=== PATIENT | female | born 1970 | race Caucasian/White ===

== ENCOUNTER 2023-12-23 23:23 | Observation (INO) | payer OTHER ==
[2023-12-23 23:30] LABS: Glucose,Whole Blood 92 mg/dL (70-110)
[2023-12-23] MEDS: SODIUM CHLORIDE 0.9% 1,000 ML IV STA (23:36)
[2023-12-24 00:06] LABS: Basophils # (A) 0.1 k/uL (0-0.2); Basophils % (A) 1 %; Eosinophils # (A) 0.2 k/uL (0-0.7); Eosinophils % (A) 3 %; HCT 40.3 % (34.0-46.0); HGB 13.1 gm/dL (11.4-16.0); Lymphocytes # (A) 2.6 k/uL (1.0-4.8); Lymphocytes % (A) 42 %; MCHC 32.7 g/dL (31.0-37.0); MCV 91.8 fL (80.0-100.0); Mean Platelet Volume 7.9; Monocytes # (A) 0.3 k/uL (0-1.0); Monocytes % (A) 5 %; Neutrophils % (A) 47 %; Platelet Count 339 k/uL (150-450); RBC 4.39 m/uL (3.80-5.40); RDW 12.1 % (11.5-15.5); WBC 6.3 k/uL (3.8-10.6)
[2023-12-24 00:21] LABS: ALT 22 U/L (4-34); AST 33 U/L (14-36); Acetaminophen <10.0 ug/mL; African American GFR (CKD) >90 (>60 ml/min/1.73 sqM); Albumin 4.4 g/dL (3.5-5.0); Alkaline Phosphatase 51 U/L (38-126); Anion Gap 12 mmol/L; Blood Urea Nitrogen 13 mg/dL (7-17); Calcium 8.9 mg/dL (8.4-10.2); Carbon Dioxide 20 mmol/L (22-30); Chloride 108 mmol/L (98-107); Glucose 88 mg/dL (74-99); Non-African American GFR(CKD) >90 (>60 ml/min/1.73 sqM); Potassium 4.2 mmol/L (3.5-5.1); Salicylate <1.0 mg/dL; Sodium 140 mmol/L (137-145); Total Bilirubin 0.5 mg/dL (0.2-1.3); Total Protein 7.5 g/dL (6.3-8.2)
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
[2023-12-24 00:35] LABS: Alcohol 252 mg/dL
[2023-12-24 01:49] LABS: Appearance,Urine Clear (Clear); Bilirubin,Urine Negative (Negative); Blood,Urine Negative (Negative); Color,Urine Colorless; Glucose,Urine (UA) Negative (Negative); Ketones,Urine Negative (Negative); Leukocyte Esterase,Urine Moderate (Negative); Nitrite,Urine Negative (Negative); Protein,Urine Negative (Negative); RBC,Urine 1 /hpf (0-5); Specific Gravity,Urine 1.003 (1.001-1.035); Squamous Epithelial Cell,Urine 1 /hpf (0-4); Urobilinogen,Urine <2.0 mg/dL (<2.0); WBC,Urine 1 /hpf (0-5)
[2023-12-24 01:52] LABS: Amphetamine Screen,Urine Not Detected (NotDetected); Barbiturate Screen,Urine Not Detected (NotDetected); Benzodiazepines Screen,Urine Detected (NotDetected); Cocaine Screen,Urine Not Detected (NotDetected); Methadone Screen, Urine Not Detected (NotDetected); Opiate Screen,Urine Not Detected (NotDetected); Oxycodone Screen, Urine Not Detected (NotDetected); Phencyclidine Screen,Urine Not Detected (NotDetected); Tricyclic Antidepressant,Urine Not Detected (NotDetected); Urn Cannabinoid Scrn Not Detected (NotDetected)
[2023-12-24] MEDS: SODIUM CHLORIDE 0.9% 1,000 ML IV STA (02:26)
--- NOTE | 2023-12-24 02:58 | CT ---
EXAM: CT Head Without Intravenous Contrast CLINICAL HISTORY: ITS.REASON CT Reason: head injury, ams TECHNIQUE: Axial computed tomography images of the head/brain without intravenous contrast. CTDI is 45.2 mGy and DLP is 1112 mGy-cm. This CT exam was performed using one or more of the following dose reduction techniques: automated exposure control, adjustment of the mA and/or kV according to patient size, and/or use of iterative reconstruction technique. COMPARISON: No relevant prior studies available. FINDINGS: Brain: No hemorrhage or mass effect. Ventricles: No hydrocephalus. Bones/joints: Unremarkable. Soft tissues: Unremarkable. Sinuses: No air fluid level. Mastoid air cells: Clear. IMPRESSION: No acute hemorrhage, hydrocephalus, or mass effect. EXAM: CT Cervical Spine Without Intravenous Contrast CLINICAL HISTORY: ITS.REASON CT Reason: head injury, ams TECHNIQUE: Axial computed tomography images of the cervical spine without intravenous contrast. CTDI is 9 mGy and DLP is 254.6 mGy-cm. This CT exam was performed using one or more of the following dose reduction techniques: automated exposure control, adjustment of the mA and/or kV according to patient size, and/or use of iterative reconstruction technique. COMPARISON: No relevant prior studies available. FINDINGS: Vertebrae: No acute fracture. Discs/spinal canal/neural foramina: degenerative changes. Soft tissues: No prevertebral swelling. Thyromegaly. IMPRESSION: No acute fracture or subluxation. Thyromegaly.
[2023-12-24] MEDS ORDERED: NALOXONE 0.4 MG/ML 1 ML VIAL IV PRN (14:20)
[2023-12-24] MEDS ORDERED: ACETAMINOPHEN TAB 325 MG TAB PO PRN (14:20)
--- NOTE | 2023-12-25 14:51 | P.CN ---
Psychiatric Consult - . 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 Patient apparently was previously living in [place], moved back home in 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 Patient was fairly combative intoxicated and needed restraints when she came into the hospital. She had a blood alcohol level of 252, benzodiazepines were positive in urine drug screen. Patient was seen today at the bedside with a sitter. Patient's nurse states that patient has been calm appropriate and apologetic. Patient was fairly directable during conversation, states that she had a "very bad day" and claimed that she was taking her father to a central service technician and other appointments during the day. 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 States that she is still grieving the of her boyfriend in [place] in 2021. States that she has a boss that is difficult to work with and putting a lot of stress on her. She claims that she is having some anxiety, mild depression however is taking Effexor. She states that her doctor instructed her to take Xanax as well for sleep. Claims that she took 2 shots of vodka and some wine before bedtime and claims that she was intoxicated and does not remember much of what happened. At this time patient denies any suicidal or homical ideations, intent or plan. Patient denies any auditory, visual hallucinations and denies any paranoia or delusions. Patients admits to using alcohol occasionally, claims that she vapes nicotine. She denies any other recreational drug use. She was fairly future oriented, apologetic for her actions. She claimed and adamantly denied that she did not have a suicide attempt and was misunderstood by her frie nd. She did give permission for handbook writer to call her Sister Cailin over the phone at [phone]. She reiterated and confirmed that patient has been going through a lot of stress especially at work. Claims that her boss has been taking advantage of her and adding on more stress. She claims that the father recently had a stroke at home. She claims that there are no guns and weapons in her home in [place] and also the parents home as well. She states that it was a "misunderstanding" and believes that her sister did not attempt suicide and that she may have slurred her words over the phone to her friends. She claims that her sister has a lot to live for and claims that she would be willing to pick her sister up and have her spend time with her and monitor closely especially this weekend and was comfortable having her discharge today. PAST PSYCHIATRIC HISTORY: Patient has a a history of anxiety and depression. Patient is currently on Effexor and Xanax as needed. Patient denies any prev ious psychiatric hospitalizations. Patient denies any psychiatric outpatient follow-up. Patient gets her medications filled by her primary care physician. Patient denies any history of suicide attempts in the past. She denies any access to guns or weapons. PAST MEDICAL HISTORY: As per medical and ER H&P ALLERGIES: as per EMR. CHEMICAL DEPENDENCY HISTORY: as per HPI. FAMILY PSYCHIATRIC/SUBSTANCE USE HISTORY: Denies SOCIAL HISTORY: Patient was born and raised in [place] and moved to the [facility] when she was a young adult. She claims that she completed high school however did not seek further college. Claims that she never had any problems with legal system, denies having any kids, states that she lives with her parents at home, she is , she works for someone at a [employer]. MENTAL STATUS EXAM: General Appearance: Patient appears to be thin, some tattoos, stated age is alert, pleasant, and cooperative. Patient appears to have fair hygiene and grooming wearing hospital gown with fair eye contact. Behavior: Patient is calmly lying in bed without any agitated behavior. Apologetic, Speech: Patient's speech is fluent and nonpressured. Mood/Affect: Patient reports their mood is "good", affect is congruent Suicidality/Homicidality: Patient denies having any suicidal or homicidal ideation intent or plan. Perceptions: Patient denies any visual hallucinations and denies any auditory hallucinations Though content/process: There is no evidence of any delusional thought content and thought process is linear and goal-directed. Memory and concentration: AOX3, grossly intact for the purposes of this session. Can spell "WORLD" backwards Judgment and insight: Improved IMPRESSIONS: Alcohol abuse/binge r/o benzodiazepine abuse History of depression and anxiety PLAN: -At this time patient DOES NOT meet criteria for inpatient psychiatric admission. -Would recommend the following medication changes/additions: Patient can continue current home dose of Effexor for mood/anxiety. Spoke with patient at great length about the risk of overdose/tolerance and abuse of Xanax especially in combination with alcohol, patient verbally understood and agreed. Grinder Operator External Tool advised patient to abstain from taking this any longer, patient was offered other alternatives to help with sleep however patient states that she will try to sleep on her own without medications. -Can discontinue 1:1 sitter at this time as patient is not currently an imminent threat to themselves -creamery worker to provide patient with outpatient mental health/psychiatry resources for appropriate follow up upon discharge -Grinder Operator External Tool spoke with patient about substance abuse and the harmful effects on medical and mental health, patient verbally understood and agreed. -creamery worker to provide patient substance use treatment resources including AA/NA meetings in the community. -Communicated plan to patient's nurse. Grinder Operator External Tool also spoke with patient's Sister Cailin over the phone who agrees with the plan and is okay with having patient discharged and stay with her at her house and can even pick patient up. -Psychiatry will sign off at this time -Please contact with any questions. 12/25/23 14:42
[2023-12-25 15:18] VITALS: BP 135/81; PULSE 67; RESP 18; TEMP 98.4
--- NOTE | 2023-12-26 08:11 | P.HPIM ---
History of Present Illness H&P Date: 12/25/23 This is a pleasant 53-year-old female who presented to the emergency department with concerns of alcohol intoxication with allegedly taking 2 of her medications per family report. Patient reports she had a very rough day at work and her boss is extremely difficult to work with and came home agitated and frustrated and became increasingly anxious after talking with her mother and stated she wanted to be left alone. Patient did grab a bottle of wine prior to going to her room and reported she just needed to decompress. Patient was talking to friends on the phone and reports she normally takes 3 Xanax throughout the day and had reportedly told her friend she was going to take four because she wanted to sleep and per patient friend misunderstood and thought she stated she was going to take 40 and also with drinking take her scheduled Effexor which she has been trying to wean off of independently. Patient reports her friend panicked and called the sister who told her mother and called 911 for a welfare check. Patient was intoxicated at the time and altered and confused as to what was going on and was brought to the hospital for evaluation. Patient was agitated and confused on admission and was documented. To having suicidal ideations. On exam patient denies any suicidal ideations or thoughts of wanting to harm herself or others. Patient reports she took 4 Xanax and had been drinking wine and does not recall further events. Patient admits to using a vape and does not smoke or use other illicit drugs. Patient does not drink daily. Patient was admitted for psychiatric evaluation with suicide sitter placed. Patient reports she recently was diagnosed with COVID with no symptoms and she feels she got it at work. Patient tested negative in the outpatient although was noted to be positive here in the ER. REVIEW OF SYSTEMS: CONSTITUTIONAL: No fever, no malaise, no fatigue. HEENT: No recent visual problems or hearing problems. Denied any sore throat. CARDIOVASCULAR: No chest pain, orthopnea, PND, no palpitations, no syncope. PULMONARY: No shortness of breath, no cough, no hemoptysis. GASTROINTESTINAL: No diarrhea, no nausea, no vomiting, no abdominal pain. NEUROLOGICAL: No headaches, no weakness, no numbness. HEMATOLOGICAL: Denies any bleeding or petechiae. GENITOURINARY: Denies any burning micturition, frequency, or urgency. MUSCULOSKELETAL/RHEUMATOLOGICAL: Denies any joint pain, swelling, or any muscle pain. ENDOCRINE: Denies any polyuria or polydipsia. The rest of the 14-point review of systems is negative. PHYSICAL EXAMINATION: GENERAL: The patient is alert and oriented x3, not in any acute distress. Well developed, well nourished. Thin built HEENT: Pupils are round and equally reacting to light. EOMI. No scleral icterus. No conjunctival pallor. Normocephalic, atraumatic. No pharyngeal erythema. No thyromegaly. CARDIOVASCULAR: S1 and S2 present. No murmurs, rubs, or gallops. PULMONARY: Chest is clear to auscultation, no wheezing or crackles. ABDOMEN: Soft, nontender, nondistended, normoactive bowel sounds. No palpable organomegaly. MUSCULOSKELETAL: No joint swelling or deformity. EXTREMITIES: No cyanosis, clubbing, or pedal edema. NEUROLOGICAL: Gross neurological examination did not reveal any focal deficits. SKIN: No rashes. Assessment: Acute alcohol intoxication with no withdrawal or tremors noted Speculated suicidal ideation per family and friend, ruled out patient is not suicidal and does not want to harm herself or others History of vaping Positive COVID-19 with patient reporting recent diagnosis of COVID-19 in the outpatient setting last week Occasional alcohol use, last glass of wine was 3 weeks ago Increased stressors including work and family and life, patient reports her significant other has shot controlled a year and a half ago in [place] where they resided History of depression GI prophylaxis DVT prophylaxis Full code Plan: Patient was admitted with reported suicidal ideation and attempted overdose of medications. Family and friend misinterpreted that she reported she was going to take 40 Xanax although she reports she took 4 and normally is prescribed 3 Xanax medications reviewed and resumed as appropriate. Patient does take Effexor And reports she has been attempting to wean herself Patient reports she thinks instructed to avoid if possible Awaiting psychiatric evaluation. Patient denies any thoughts of suicidal ideation or attempts over others. Patient is medically stable although continues to test positive for COVID. No respiratory symptoms. Patient is medically stable and cleared for discharge once evaluated by psychiatry The impression and plan of care has been dictated by Geneva Dior, Nurse Practitioner as directed. Dr. Juarez MD I have performed a history and examination and MDM of this patient, discussed the same with the dictator, and agree with the dictator's assessment and plan as written ,documented as a scribe. Based on total visit time, I have performed more than 50% of the visit. Past Medical History Past Medical History: No Reported History History of Any Multi-Drug Resistant Organisms: None Reported Past Surgical History: Unable to Obtain Additional Past Surgical History / Comment(s): Septo-Rhinoplasty Past Anesthesia/Blood Transfusion Reactions: No Reported Reaction Past Psychological History: Anxiety, Depression Additional Psychological History / Comment(s): Was prescribed effexor for hot flashes. Xanax prn HS Smoking Status: Current some day smoker Past Alcohol Use History: Rare Additional Past Alcohol Use History / Comment(s): Vape Pen Use Past Drug Use History: None Reported - Past Family History Father Family Medical History: CVA/TIA, Myocardial Infarction (ME) Medications and Allergies Home Medications Medication Instructions Recorded Confirmed Type ALPRAZolam [Xanax] 0.5 mg PO TID PRN 12/24/23 12/24/23 History Venlafaxine HCl ER [Effexor XR] 37.5 mg PO DAILY 12/24/23 12/24/23 History cefUROXime axetiL [Ceftin] 500 mg PO DIRECTED 12/24/23 12/24/23 History Acetaminophen Tab [Tylenol] 650 mg PO Q6HR PRN tab 12/25/23 Rx Allergies Allergy/AdvReac Type Severity Reaction Status Date / Time No Known Allergies Allergy Verified 12/23/23 23:45 Physical Exam Vitals: Vital Signs Temp Pulse Pulse Resp BP BP Pulse Ox 12/25/23 08:00 97.7 F 50 L 16 139/70 100 12/25/23 02:48 98.6 F 61 18 112/69 12/24/23 21:15 97.6 F 67 16 127/77 99 12/24/23 15:44 98 18 138/92 99 Intake and Output 12/24/23 12/25/23 12/25/23 22:59 06:59 14:59 Other: # Voids 3 Weight 68.039 kg Results CBC & Chem 7: 12/23/23 23:30 12/23/23 23:30 Labs: Abnormal Lab Results - Last 24 Hours (Table) 12/24/23 Range/Units 12:27 SARS-CoV-2 (PCR) Detected A (Not Detectd) Thrombosis Risk Factor Assmnt - DVT/VTE Prophylaxis DVT/VTE Prophylaxis: Pharmacologic Prophylaxis ordered - Choose All That Apply Any of the Below Risk Factors Present?: Yes Each Factor Represents 1 point: Age 41-60 years Thrombosis Risk Factor Assessment Total Risk Factor Score: 1 Thrombosis Risk Factor Assessment Level: Low Risk Assessment and Plan Time with Patient: Greater than 30
--- NOTE | 2023-12-26 08:14 | P.DS ---
Providers Date of admission: 12/24/23 14:21 Expected date of discharge: 12/25/23 Attending physician: Jason Adams MD Consults: 12/24/23 14:20 Consult Physician Routine Consulting Provider: Richmond Yu Consult Reason/Comments: Suicide attempt, coronavirus Do you want consulting provider notified?: Yes Primary care physician: Stated None Hospital Course: Final diagnosis Acute alcohol intoxication with no withdrawal or tremors noted Speculated suicidal ideation per family and friend, ruled out patient is not suicidal and does not want to harm herself or others History of vaping Positive COVID-19 with patient reporting recent diagnosis of COVID-19 in the outpatient setting last week Occasional alcohol use, last glass of wine was 3 weeks ago Increased stressors including work and family and life, patient reports her significant other has shot controlled a year and a half ago in [place] where they resided History of depression GI prophylaxis DVT prophylaxis Full code Discharge disposition Patient is being discharged in a stable condition with guarded prognosis to home. Patient will follow-up with Dr. Sandeep Diaz in the outpatient setting upon discharge. Patient is to continue with [facility] outpatient as scheduled. Total time taken is greater than 35 minutes. Hospital course This is a 53-year-old female who was recently admitted with acute alcohol i ntoxication and family and friends with concerns of possible suicidal ideation. Miscommunication was misinterpreted by family and friends as they reported they were concerned she had told her friend she was taking 40 Xanax although patient reports she is taking 4 Xanax as prescribed 3/day in an attempt to get some rest as patient had an extremely difficult day and feeling overall frustrated and a nxious. Patient was intoxicated and admits to drinking wine and she may have drank most of the bottle and was noted to have alcohol level above 200 on admission. Patient was admitted for psychiatric evaluation. Evaluated by psychiatry and cleared the patient for discharge. Patient is not suicidal and denies any suicidal ideation or thoughts of wanting to hurt herself. Patient has been instructed to follow-up with her primary care provider as well as [facility] outpatient. Currently no reports of chest pain, shortness of breath, or palpitations. Patient is afebrile. No reports of nausea or vomiting and patient is tolerating diet. Patient will be discharged home today. Physical exam: Gen: This is a 53-year-old female who is awake, alert and oriented x 3, thin built, well-developed, well-nourished HEENT: Head is atraumatic, normocephalic. Pupils equal, round. Sclerae is anicteric. NECK: Supple. No JVD. No lymphadenopathy. No thyromegaly. LUNGS: Clear to auscultation. No wheezes or rhonchi. No intercostal retractions. HEART: Regular rate and rhythm. No murmur. ABDOMEN: Soft. Thin. Bowel sounds are present. No masses. No tenderness. EXTREMITIES: No pedal edema. No calf tenderness. NEUROLOGICAL: Patient is awake, alert and oriented x3. Cranial nerves 2 through 12 are grossly intact. Please refer to medication reconciliation sheet for a list of medications. The impression and plan of care has been dictated by Geneva Dior, Nurse Practitioner as directed. Dr. Juarez MD I have performed a history and examination and MDM of this patient, discussed the same with the dictator, and agree with the dictator's assessment and plan as written ,documented as a scribe. Based on total visit time, I have performed more than 50% of the visit. Patient Condition at Discharge: Stable Plan - Discharge Summary Discharge Rx Participant: No New Discharge Prescriptions: New Acetaminophen Tab [Tylenol] 650 mg PO Q6HR PRN tab PRN Reason: Mild Pain Or Fever > 100.5 Continue cefUROXime axetiL [Ceftin] 500 mg PO DIRECTED ALPRAZolam [Xanax] 0.5 mg PO TID PRN PRN Reason: Anxiety Venlafaxine HCl ER [Effexor XR] 37.5 mg PO DAILY Discharge Medication List ALPRAZolam [Xanax] 0.5 mg PO TID PRN 12/24/23 [History] Venlafaxine HCl ER [Effexor XR] 37.5 mg PO DAILY 12/24/23 [History] cefUROXime axetiL [Ceftin] 500 mg PO DIRECTED 12/24/23 [History] Acetaminophen Tab [Tylenol] 650 mg PO Q6HR PRN tab 12/25/23 [Rx] Follow up Appointment(s)/Referral(s): None,Stated [Primary Care Provider] - 1-2 days Activity/Diet/Wound Care/Special Instructions: Activity limited until follow-up Follow-up with primary care provider on discharge Follow-up with [facility] outpatient Continue taking medications as prescribed and discuss with your doctor regarding weaning and discontinuing medications Discharge Disposition: HOME SELF-CARE
== END 2023-12-25 19:05 | disposition home or self-care (01) ==
LOC: EC 23:23 → 4SSUR 12-24 14:21
PROVIDERS: ADMIT Internal Medicine; ATTEND Internal Medicine
DX: F10.229 Alcohol dependence with intoxication, unspecified (principal); U07.1 COVID-19; F41.9 Anxiety disorder, unspecified; F32.A Depression, unspecified; F17.200 Nicotine dependence, unspecified, uncomplicated; Y90.8 Blood alcohol level of 240 mg/100 ml or more; Z79.899 Other long term (current) drug therapy
CPT/HCPCS: 96360; 99285; 36415; 93005; 80053; 85025; 81001; 80306; 80143; 80320; 87635; 80179; 72125; 70450; G0378 ×2